=== PATIENT | male | born 1970 | race Caucasian/White ===

== ENCOUNTER 2017-05-13 20:50 | Emergency (ER) | payer SELFPAY ==
[~2017-05-13] VITALS: Ht 180.3 cm; Wt 81.6 kg
--- NOTE | 2017-05-13 21:00 | NUR ---
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 SEEN BY MD FOR EVAL. MOTED HR 140S. OTHER VS STABLE. PT AAOX3. SAFETY AND COMFORT MEASURES PROVIDED. WILL MONITOR.
[2017-05-13] MEDS ORDERED: LORAZEPAM INJ 2 MG/ML VIAL ONE (21:21)
[2017-05-13] MEDS ORDERED: ONDANSETRON HCL/PF 4 MG/2 ML VIAL ONE (21:21)
[2017-05-13] MEDS ORDERED: ASPIRIN 325 MG TABLET ONE (21:21)
[2017-05-13 21:28] LABS: BASOPHILS % (AUTO) 0.4 % (0.0-2.0); EOSINOPHILS % (AUTO) 0.1 % (0.0-6.0); HEMATOCRIT 48 % (39-51); HEMOGLOBIN 16.8 g/dL (13.5-17.5); LYMPHOCYTES # (AUTO) 1.8 /CMM (0.8-4.8); LYMPHOCYTES % (AUTO) 18.7 % (20.0-44.0); MEAN CORPUSCULAR HEMOGLOBIN 31 PG (26.0-33.0); MEAN CORPUSCULAR HGB CONC 35 g/dl (31.0-36.0); MEAN CORPUSCULAR VOLUME 89 fL (80-96); MONOCYTES # (AUTO) 0.8 /CMM (0.1-1.30); MONOCYTES % (AUTO) 8.2 % (2.0-12.0); NEUTROPHILS # (AUTO) 7.1 /CMM (1.8-8.9); NEUTROPHILS % (AUTO) 72.6 % (43.0-81.0); PLATELET COUNT (AUTO) 298 /CMM (150-450); RDW COEFFICIENT OF VARIATION 12.2 (11.5-15.0); WHITE BLOOD COUNT (AUTO) 9.7 K/uL (4.3-11.0)
[2017-05-13] MEDS ORDERED: ONDANSETRON HCL/PF 4 MG/2 ML VIAL IVP ONE (21:30)
[2017-05-13] MEDS ORDERED: LORAZEPAM INJ 2 MG/ML VIAL IV ONE (21:30)
[2017-05-13] MEDS ORDERED: IV NS 0.9% 1,000 ML BAG IV ONE ×2 (21:30→22:00)
[2017-05-13] MEDS ORDERED: ASPIRIN 325 MG TABLET PO ONE (21:30)
--- NOTE | 2017-05-13 21:30 | NUR ---
IV ACCESS STARTED. BLOOD DRAWN FOR LABS. MEDICATED ORDERED.
[2017-05-13 21:39] LABS: CALCIUM, SERUM 8.8 mg/dL (8.5-10.1); CARBON DIOXIDE 24 mmol/L (21-32); CHLORIDE 102 mmol/L (98-107); CREATININE 1.1 mg/dL (0.6-1.3); GLUCOSE 90 mg/dL (74-106); POTASSIUM 4.2 mmol/L (3.5-5.1); SODIUM SERUM 137 mmol/L (136-145); UREA NITROGEN, BLOOD 12 mg/dL (7-18)
[2017-05-13 21:41] LABS: INR 0.93 (0.85-1.15)
[2017-05-13 21:45] LABS: ALANINE AMINOTRANSFERASE 37 U/L (12-78); ALKALINE PHOSPHATASE 87 U/L (46-116); ASPARTATE AMINOTRANSFERASE 39 U/L (15-37); BILIRUBIN,DIRECT 0.2 mg/dL (0.0-0.2); BILIRUBIN,TOTAL 0.6 mg/dL (0.2-1.0)
[2017-05-13 21:46] LABS: TROPONIN I < 0.017 ng/mL (0.00-0.056)
--- NOTE | 2017-05-13 22:00 | NUR ---
PT WENT TO THE RESTROOM NOTED AMBULATORY WITH STEADY GAIT.
--- NOTE | 2017-05-13 22:39 | NUR ---
Patient is resting comfortably in bed with eyes closed. Easily aroused. VSS
--- NOTE | 2017-05-14 00:01 | NUR ---
ASSUMED D/C CARE ONLY AT THIS TIME. Patient discharged to home in stable condition. Written and verbal after care instructions given. Patient verbalizes understanding of instructiions. IV removed. Catheter intact and site benign. Pressure and 4x4 applied to site. No bleeding noted. Ambulatory with a steady gait.
[2017-05-14 00:02] VITALS: BP 137/79
== END 2017-05-14 00:03 | disposition home or self-care (01) ==
LOC: ER 20:52
DX: R00.2 Palpitations (principal); F14.10 Cocaine abuse, uncomplicated; F10.129 Alcohol abuse with intoxication, unspecified; F41.9 Anxiety disorder, unspecified; Z79.82 Long term (current) use of aspirin
CPT/HCPCS: 36415; 71045-TC; 80048-TC; 80076-TC; 84484-TC; 85025-TC; 85730-TC; A4606; G0480; J2060; J2405; J7030; Z7610

== ENCOUNTER 2020-12-14 21:09 | Emergency (ER) | payer BC ==
[~2020-12-14] VITALS: Ht 180.3 cm; Wt 81.6 kg
--- NOTE | 2020-12-14 21:16 | NUR ---
PT BIBSELF C/O CONSTIPATION X 3DAYS AND LOWER BACK PAIN X1 WEEK. PT AAOX4 BREATHING EVENLY AND UNLABORED. PT ATTACHED TO MONITOR AND POX. MD AT BEDSIDE FOR EVAL. SKIN IS WARM AND DRY. PT GIVEN BLANKET AND CALL LIGHT WITHIN REACH
[2020-12-14] MEDS ORDERED: IV NS 0.9% 500 ML BAG IV ONE (21:30)
[2020-12-14 22:39] LABS: BASOPHILS % (AUTO) 0.6 % (0.0-2.0); EOSINOPHILS % (AUTO) 2.5 % (0.0-6.0); HEMATOCRIT 46 % (39-51); HEMOGLOBIN 15.8 g/dL (13.5-17.5); LYMPHOCYTES # (AUTO) 2.4 K/uL (0.8-4.8); LYMPHOCYTES % (AUTO) 32.1 % (20.0-44.0); MEAN CORPUSCULAR HGB CONC 34 g/dl (31.0-36.0); MEAN CORPUSCULAR VOLUME 92 fL (80-96); MONOCYTES # (AUTO) 0.6 K/uL (0.1-1.30); NEUTROPHILS # (AUTO) 4.2 K/uL (1.8-8.9); NEUTROPHILS % (AUTO) 56.8 % (43.0-81.0); PLATELET COUNT (AUTO) 364 K/uL (150-450); RED BLOOD CELL COUNT(AUTO) 5.03 MIL/uL (4.5-6.0); WHITE BLOOD COUNT (AUTO) 7.5 K/uL (4.3-11.0)
[2020-12-14 22:47] LABS: BILIRUBIN,URINE NEGATIVE (NEGATIVE); COLOR,URINE YELLOW (YELLOW); LEUKOCYTE ESTERASE ,URINE NEGATIVE (NEGATIVE); NITRITE, URINE NEGATIVE (NEGATIVE); PROTEIN,URINE NEGATIVE (NEGATIVE); UGLUCOSE NEGATIVE (NEGATIVE); UROBILINOGEN,URINE 0.2 EU/dL (0.2)
[2020-12-14 22:56] LABS: CALCIUM, SERUM 8.8 mg/dL (8.5-10.1); CARBON DIOXIDE 30 mmol/L (21-32); CHLORIDE 99 mmol/L (98-107); CREATININE 1.3 mg/dL (0.6-1.3); GLUCOSE 123 mg/dL (74-106); POTASSIUM 3.5 mmol/L (3.5-5.1); SODIUM SERUM 136 mmol/L (136-145); UREA NITROGEN, BLOOD 13 mg/dL (7-18)
[2020-12-14 23:16] LABS: ALANINE AMINOTRANSFERASE 29 U/L (12-78); ALKALINE PHOSPHATASE 61 U/L (46-116); ASPARTATE AMINOTRANSFERASE 22 U/L (15-37); BILIRUBIN,DIRECT 0.2 mg/dL (0.0-0.2); BILIRUBIN,TOTAL 1.3 mg/dL (0.2-1.0); LIPASE 71 U/L (73-393); TOTAL PROTEIN, SERUM 7.1 g/dL (6.4-8.2)
[2020-12-14] MEDS ORDERED: SENN-18 PO (23:48)
[2020-12-14] MEDS ORDERED: NAPR-1009 PO (23:48)
[2020-12-14] MEDS ORDERED: CYCL5TAB PO (23:48)
[2020-12-14 23:54] VITALS: BP 134/79
--- NOTE | 2020-12-14 23:54 | NUR ---
Patient discharged to home in stable condition. Rx and Written and verbal after care instructions given. Patient verbalizes understanding of instruction.
== END 2020-12-14 23:55 | disposition home or self-care (01) ==
LOC: ER 21:09
DX: R10.31 Right lower quadrant pain (principal); M54.50 Low back pain, unspecified; K59.00 Constipation, unspecified; F41.9 Anxiety disorder, unspecified; Z79.899 Other long term (current) drug therapy
CPT/HCPCS: 36415; 74176; 80048; 80076; 81003; 83690; 84484; 85025; 85730; 96360; 99284; J7040